=== PATIENT | female | born 1990 | race Caucasian/White ===

== ENCOUNTER 2016-10-04 20:25 | Emergency (ER) | payer BC ==
--- NOTE | 2016-10-04 21:23 | EDM.PDOC ---
ED HPI GENERAL MEDICAL PROBLEM - General Chief Complaint: General Stated Complaint: CHEST PAIN Time Seen by Provider: 10/04/16 20:50 Source of Information: Reports: Patient History Limitations: Reports: No Limitations - History of Present Illness INITIAL COMMENTS - FREE TEXT/NARRATIVE: Patient seen today with chief complaint of not feeling her usual self tire achiness had her DTaP yesterday at OBs office today she has noticed low-grade fever and muscle aches and fatigue also complained of chest pain retrocardiac radiating to the back Onset: Today, Gradual Onset Date: 10/04/16 Onset Time: 17:00 Duration: Hour(s):, Waxing/Waning Location: Reports: Chest, Radiates to (Chest pain radiating to back) Quality: Reports: Ache, Pressure Severity: Moderate Improves with: Reports: None Associated Symptoms: Reports: Other (Hot flashes chills) Treatments PRODUCTION SUPPORT DEVELOPER: Reports: Acetaminophen Middle Chest Pain Score (Numeric/FACES): 6 - Related Data Allergies Allergy/AdvReac Type Severity Reaction Status Date / Time No Known Allergies Allergy Verified 10/04/16 20:25 Home Meds: Home Meds PNV95/Ferrous Fumarate/FA [ Tablet] 1 each PO DAILY 10/04/16 [History] ED ROS GENERAL - Review of Systems Review Of Systems: See Below Constitutional: Reports: No Symptoms HEENT: Reports: No Symptoms Respiratory: Reports: No Symptoms Cardiovascular: Reports: No Symptoms Endocrine: Reports: No Symptoms GI/Abdominal: Reports: Other (Patient is 29 weeks active child with heart rate of 155) : Reports: Frequency Musculoskeletal: Reports: Other (Generalized aches) Skin: Reports: No Symptoms Neurological: Reports: No Symptoms Psychiatric: Reports: No Symptoms Hematologic/Lymphatic: Reports: No Symptoms Immunologic: Reports: No Symptoms Free Text/Narrative/Comment: No lower extremity edema negative Christine good pedal pulses ED EXAM, GENERAL - Physical Exam Exam: See Below Exam Limited By: No Limitations General Appearance: Alert, WD/WN Ears: Normal External Exam, Normal Canal, Hearing Grossly Normal, Normal TMs Nose: Normal Inspection, Normal Mucosa, No Blood Throat/Mouth: Normal Inspection, Normal Lips, Normal Teeth, Normal Gums, Normal Oropharynx, Normal Voice, No Airway Compromise Head: Atraumatic, Normocephalic Neck: Normal Inspection, Supple, Non-Tender, Full Range of Motion Respiratory/Chest: No Respiratory Distress, Lungs Clear, Normal Breath Sounds, No Accessory Muscle Use, Chest Non-Tender Cardiovascular: Normal Peripheral Pulses, Regular Rate, Rhythm, No Edema, No Gallop, No JVD, No Murmur, No Rub GI/Abdominal: Normal Bowel Sounds, Soft, Non-Tender, No Organomegaly, No Distention, No Abnormal Bruit, No Mass (Female) Exam: Deferred Rectal (Female) Exam: Deferred Back Exam: Normal Inspection, Full Range of Motion, NT Extremities: Normal Inspection, Normal Range of Motion, Non-Tender, Normal Capillary Refill, No Pedal Edema Neurological: Alert, Oriented, CN II-XII Intact, Normal Cognition, Normal Gait, Normal Reflexes, No Motor/Sensory Deficits Psychiatric: Normal Affect, Normal Mood Skin Exam: Warm, Dry, Intact, Normal Color, No Rash Course - Vital Signs Last Recorded V/S: Last Vital Signs Temp 98.0 F 10/04/16 20:26 Pulse 116 H 10/04/16 20:26 Resp 20 10/04/16 20:26 BP 128/78 10/04/16 20:26 Pulse Ox 100 10/04/16 20:26 Departure - Departure Time of Disposition: 23:03 Disposition: DC/Tfer to Acute Hospital 02 Condition: Fair Clinical Impression: PE, Pulmonary embolism - Discharge Information Forms: ED Department Discharge Care Plan Goals: Patient is hemodynamically stable we'll transfer to [facility]. - Problem List & Annotations (1) PE, Pulmonary embolism SNOMED Code(s): 20581457 Code(s): I26.99 - OTHER PULMONARY EMBOLISM WITHOUT ACUTE COR PULMONALE Status: Acute Current Visit: Yes - Problem List Review Problem List Initiated/Reviewed/Updated: Yes - Assessment/Plan Assessment:: Patient seen chest pain generalized muscle aches patient is 29 weeks gestation at this time we decided to rule out PE secondary to elevated d-dimer we will transfer her to a center ER for workup including deep vein ultrasound of the legs and possible VQ scan at this time patient is going by private car or by basic ambulance depending on availability of ambulance Troponin NER was negative EKG initially revealed elevated heart rate no acute changes. 1 call called discussed with OB will have all ER evaluate at essentially
[2016-10-04 22:09] LABS: CHLORIDE,CL 104 mmol/L (98-107); SODIUM,NA 138 mmol/L (136-145)
[2016-10-04] MEDS ORDERED: Aspirin 81 MG Tab.Chew PO SCH (22:22)
[2016-10-04] MEDS ORDERED: Aspirin 81 MG Tab.Chew PO STA (22:27)
[2016-10-04 23:35] VITALS: BP 127/63
[2016-10-05] MEDS ORDERED: Aspirin 81 MG Tab.Chew PO SCH (08:00)
== END 2016-10-04 23:25 ==
LOC: LL.ED 20:25
DX: O88.213 Thromboembolism in pregnancy, third trimester (principal); Z3A.29 29 weeks gestation of pregnancy
CPT/HCPCS: 36415; 80048; 81001; 84484; 85025; 85379; 87086; 93005; 99285; A9270

== ENCOUNTER 2019-09-28 13:28 | Emergency (ER) | payer BC ==
--- NOTE | 2019-09-28 13:31 | EDM.PDOC ---
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 No paper hospital chart available.), Other ([facility] EMR) History Limitations: Reports: No Limitations - History of Present Illness INITIAL COMMENTS - FREE TEXT/NARRATIVE: The patient walked into our emergency room from her duties here in the hospital secondary to progressive pelvic cramping with symptoms starting at about 19:00 hours yesterday evening. Her EDC is 01/11/20 by ultrasound with patient having previous irregular menses secondary to her endometriosis and previous Lupron therapy. She denies any vaginal discharge, spotting, or UTI symptoms with her fetus still very active. Her has been without problems to this point. No recent history of abdominal pain, heartburn, nausea, diarrhea, melena, gross hematochezia, or any food intolerance, including fatty foods, etc.. The patient also denies any recent fever, cough, wheezing, dyspnea, etc.. The patient denies any chest pain/pressure, heart flutter, dizziness, orthostasis, orthopnea, diaphoresis, paresthesias, recent decreased exercise tolerance, or any other anginal-type symptoms. Contractions are now fairly irregular, however occasionally on an every 5 minute basis. The patient also denies any recent fever, cough, wheezing, dyspnea, etc.. Onset: Gradual Onset Date: 09/27/19 Onset Time: 19:00 Duration: Getting Worse, Intermittent Location: Reports: Pelvis. Denies: Head, Face, Neck, Chest, Abdomen, Upper Extremity, Left, Upper Extremity, Right, Lower Extremity, Left, Lower Extremity, Right, Radiates to Quality: Reports: Pressure Severity: Moderate Improves with: Reports: None Worsens with: Reports: None Context: Reports: Other (As above). Denies: Sick Contact, Trauma Associated Symptoms: Denies: Confusion, Chest Pain, Cough, Diaphoresis, Fever/Chills, Headaches, Loss of Appetite, Malaise, Nausea/Vomiting, Rash, Seizure, Shortness of Breath, Syncope, Weakness Treatments PER DIEM RN: Reports: Other (see below) (None) Pelvic Pain Score (Numeric/FACES): 8 - Related Data Allergies Allergy/AdvReac Type Severity Reaction Status Date / Time No Known Allergies Allergy Verified 09/28/19 13:30 Home Meds: Home Meds Pnv No.95/Ferrous Fum/Folic AC [ Tablet] 1 each PO DAILY 10/04/16 [History] Past Medical History HEENT History: Reports: Impaired Vision, Otitis Media, Other (See Below) Other HEENT History: Patient wears glasses. Cardiovascular History: Reports: Other (See Below) Other Cardiovascular History: D-dimer elevation on 10/04/16 with negative workup as below. Genitourinary History: Reports: UTI, Recurrent, Other (See Below). Denies: Acute Renal Failure, Chronic Renal Insuffiency Other Genitourinary History: Interstitial cystitis. APPRENTICE PAINTER BRUSH History: Reports: Endometriosis, : 2 Para: 1 LMP (Approximate): Other (See Below) Other APPRENTICE PAINTER BRUSH History: Current 25 weeks gestation. Endometriosis with previous Lupron therapy, surgeries as below, and secondary irregular menses. First full term by without complications. Dysmenorrhea secondary to endometriosis with oligomenorrhea after Lupron therapy, endometrial surgery, etc. as below. Neurological History: Reports: Other (See Below) Other Neuro History: Speech impediment. - Past Surgical History HEENT Surgical History: Reports: Adenoidectomy, Myringotomy w Tube(s), Oral Surgery, Tonsillectomy, Other (See Below) Other HEENT Surgeries/Procedures: Tonsillectomy and adenoidectomy at age 12. [place] teeth extraction Female Surgical History: Reports: Other (See Below) Other Female Surgeries/Procedures: Laparoscopic diagnostic pelvic evaluation with tubal study and resection of endometriosis and pre-sacral neurectomy on 03/11/19. Laparoscopic diagnostic tubal study on 09/10/18 with cystoscopy and hysteroscopy. Bilateral ovarian cysts lysis with endometrial laser fulguration on 04/04/16 with additional cystoscopy and hysteroscopy. Cystoscopy and hysteroscopy on 03/11/19. D&C on 09/10/18. - Past Imaging History Past Imaging History: Reports: CAT Scan (CT of the chest on 10/05/16.), Ultrasound (Last OB ultrasound on 08/18/19.) Social & Family History - Tobacco Use Smoking Status *Q: Never Smoker Tobacco Use Within Last Twelve Months: No Used Tobacco, but Quit: No Smoking Cessation Information Provided To Patient: No Second Hand Smoke Exposure: Yes Source of Second Hand Smoke Exposure: smokes Second Hand Smoke Education Provided: Yes - Caffeine Use Caffeine Use: Reports: Coffee ED ROS GENERAL - Review of Systems Review Of Systems: Comprehensive ROS is negative, except as noted in HPI. ED EXAM - Physical Exam Exam: See Below Exam Limited By: No Limitations General Appearance: Alert, WD/WN, No Apparent Distress Head: Atraumatic, Normocephalic. No: Facial Swelling, Facial Tenderness, Sinus Tenderness Neck: Normal Inspection, Supple, Non-Tender, Full Range of Motion. No: Lymphadenopathy (L), Lymphadenopathy (R), Thyromegaly Respiratory/Chest: No Respiratory Distress, Lungs Clear, Normal Breath Sounds, No Accessory Muscle Use, Chest Non-Tender. No: Pleural Rub, Retractions Cardiovascular: Normal Peripheral Pulses, No Gallop, No JVD, No Murmur, No Rub, Tachycardia (Borderline with regular rhythm). No: No Edema (Dependent edema as below), Gallop/S3, Gallop/S4, Friction Rub GI/Abdominal Exam: Normal Bowel Sounds, Soft, Non-Tender, No Organomegaly, No Distention, No Abnormal Bruit, No Mass, Pelvis Stable, Other (Obese). No: Guarding Fundal Height In cm: 25 Rectal Exam: Deferred (Female) Exam: Normal External Exam, Normal Speculum Exam, Cervical Discharge (Normal discharge of ), Enlarged Uterus (Appropriate for gestation). No: Adnexal Mass (L), Adnexal Mass (R), Adnexal Tenderness, Cervical Dilatation, Cervical Fluid, Cervical Lesions, Cervix Motion Tenderness, Uterine Tenderness, Vaginal Bleeding, Vaginal Lesions, Vaginal Tears Heart Tones: Present Heart Tones per Min: 130 Back Exam: Normal Inspection, Full Range of Motion. No: CVA Tenderness (L), CVA Tenderness (R), Muscle Spasm Extremities: Normal Inspection, Normal Range of Motion, Non-Tender, Normal Capillary Refill, No Pedal Edema Neurological: Alert, Oriented, CN II-XII Intact, Normal Cognition, Normal Gait, Normal Reflexes, No Motor/Sensory Deficits Psychiatric: Normal Affect, Normal Mood Skin Exam: Warm, Dry, Intact, Normal Color, No Rash. No: Diaphoretic, Ecchymosis, Jaundice, Pallor, Petechiae, Wound/Incision Lymphatic: No Adenopathy Course - Vital Signs Last Recorded V/S: Last Vital Signs Temp 37.2 C 09/28/19 14:18 Pulse 100 09/28/19 15:00 Resp 18 09/28/19 15:00 BP 114/77 09/28/19 15:00 Pulse Ox 100 09/28/19 15:00 Vital Signs - 24 hr 09/28/19 09/28/19 14:18 15:00 Temperature [ 37.2 C Temporal] Pulse, 110 H 100 Peripheral [ Pulse Oximetry] Respiratory 24 H 18 Rate Blood Pressure 114/77 [Left Upper Arm ] Blood Pressure 134/83 [Right Upper Arm] O2 Sat by Pulse 99 100 Oximetry - Orders/Labs/Meds Orders: Active Orders 24 hr Category Date Time Status Cardiac Monitoring [RC] . DIRECTED Care 09/28/19 13:36 Active Peripheral IV Care [RC] . DIRECTED Care 09/28/19 13:32 Active CHLAMYDIA AND GONORRHEA BY TMA Routine Lab 09/28/19 13:33 Received CULTURE URINE [RM] Routine Lab 09/28/19 13:33 Received GENITAL CULTURE [MREF] Stat Lab 09/28/19 13:33 Received Sodium Chloride 0.9% [Saline Flush] Med 09/28/19 13:32 Active 10 ml FLUSH ASDIRECTED PRN Heart Monitor External [WOMSER] Stat Oth 09/28/19 13:31 Ordered Obtain Past Medical Record [OM.PC] Routine Oth 09/28/19 13:35 Active Peripheral IV Insertion Adult [OM.PC] Stat Oth 09/28/19 13:32 Ordered Medication Orders Sodium Chloride (Saline Flush) 10 ml FLUSH ASDIRECTED PRN PRN Reason: Keep Vein Open Last Admin: 09/28/19 15:08 Dose: 10 ml Documented by: Admin: 09/28/19 14:16 Dose: 10 ml Documented by: GINI Labs: Laboratory Tests 09/28/19 09/28/19 09/28/19 Range/Units 13:33 13:35 13:35 WBC 10.2 (4.0-10.2) K/uL RBC 4.07 (3.77-5.09) M/uL Hgb 12.6 (11.7-15.5) g/dL Hct 37.4 (34.0-46.0) % MCV 91.9 D (84.0-98.0) fL MCH 31.0 (28.2-33.3) pg MCHC 33.7 (31.7-36.0) g/dL RDW 12.8 (11.2-14.1) % Plt Count 211 D (150-350) K/uL Neut % (Auto) 78.1 (45.0-80.0) % Lymph % (Auto) 16.4 (10.0-50.0) % [place] % (Auto) 4.9 (2.0-14.0) % Eos % (Auto) 0.4 (0.0-5.0) % Baso % (Auto) 0.2 (0.0-2.0) % Neut # (Auto) 7.99 H (1.40-7.00) K/uL Lymph # (Auto) 1.68 (0.50-3.50) K/uL [place] # (Auto) 0.50 (0.00-1.00) K/uL Eos # (Auto) 0.04 (0.00-0.50) K/uL Baso # (Auto) 0.02 (0.00-0.20) K/uL Sodium 137 (136-145) mmol/L Potassium 3.6 (3.5-5.1) mmol/L Chloride 101 (98-107) mmol/L Carbon Dioxide 25.6 (21.0-32.0) mmol/L BUN 12 (7-18) mg/dL Creatinine 0.65 (0.51-1.17) mg/dL Est Cr Clr Drug Dosing TNP Estimated GFR (MDRD) > 60 mL/min Glucose 118 H (74-106) mg/dL Calcium 9.0 (8.5-10.1) mg/dL Magnesium (1.8-2.4) mg/dL Total Bilirubin 0.2 (0.2-1.0) mg/dL AST 20 (15-37) U/L ALT 36 (12-78) U/L Alkaline Phosphatase 92 (46-116) IU/L Total Protein 7.3 (6.4-8.2) g/dL Albumin 2.6 L (3.4-5.0) g/dL TSH, Ultra Sensitive (0.358-3.740) mIU/mL HCG, Quant mIU/mL Specimen Type Urincc Urine Color Yellow Urine Appearance Clear Urine pH 7.0 (5.0-9.0) Ur Specific [place] 1.025 (1.005-1.030) Urine Protein Negative (NEGATIVE) mg/dL Urine Glucose (UA) Negative (NEGATIVE) mg/dL Urine Ketones Negative (NEGATIVE) mg/dL Urine Occult Blood Negative (NEGATIVE) Urine Nitrite Negative (NEGATIVE) Urine Bilirubin Negative (NEGATIVE) Urine Urobilinogen 0.2 (0.2-1.0) E.U./dL Ur Leukocyte Esterase Negative (NEGATIVE) Urine RBC Not seen /HPF Urine WBC Not seen /HPF Ur Epithelial Cells Few /LPF Urine Bacteria Few (NONE TO FEW) /HPF 09/28/19 Range/Units 13:35 WBC (4.0-10.2) K/uL RBC (3.77-5.09) M/uL Hgb (11.7-15.5) g/dL Hct (34.0-46.0) % MCV (84.0-98.0) fL MCH (28.2-33.3) pg MCHC (31.7-36.0) g/dL RDW (11.2-14.1) % Plt Count (150-350) K/uL Neut % (Auto) (45.0-80.0) % Lymph % (Auto) (10.0-50.0) % [place] % (Auto) (2.0-14.0) % Eos % (Auto) (0.0-5.0) % Baso % (Auto) (0.0-2.0) % Neut # (Auto) (1.40-7.00) K/uL Lymph # (Auto) (0.50-3.50) K/uL [place] # (Auto) (0.00-1.00) K/uL Eos # (Auto) (0.00-0.50) K/uL Baso # (Auto) (0.00-0.20) K/uL Sodium (136-145) mmol/L Potassium (3.5-5.1) mmol/L Chloride (98-107) mmol/L Carbon Dioxide (21.0-32.0) mmol/L BUN (7-18) mg/dL Creatinine (0.51-1.17) mg/dL Est Cr Clr Drug Dosing Estimated GFR (MDRD) mL/min Glucose (74-106) mg/dL Calcium (8.5-10.1) mg/dL Magnesium 1.7 L (1.8-2.4) mg/dL Total Bilirubin (0.2-1.0) mg/dL AST (15-37) U/L ALT (12-78) U/L Alkaline Phosphatase (46-116) IU/L Total Protein (6.4-8.2) g/dL Albumin (3.4-5.0) g/dL TSH, Ultra Sensitive 1.252 (0.358-3.740) mIU/mL HCG, Quant 6946 mIU/mL Specimen Type Urine Color Urine Appearance Urine pH (5.0-9.0) Ur Specific [place] (1.005-1.030) Urine Protein (NEGATIVE) mg/dL Urine Glucose (UA) (NEGATIVE) mg/dL Urine Ketones (NEGATIVE) mg/dL Urine Occult Blood (NEGATIVE) Urine Nitrite (NEGATIVE) Urine Bilirubin (NEGATIVE) Urine Urobilinogen (0.2-1.0) E.U./dL Ur Leukocyte Esterase (NEGATIVE) Urine RBC /HPF Urine WBC /HPF Ur Epithelial Cells /LPF Urine Bacteria (NONE TO FEW) /HPF Meds: Medications Generic Name Dose Route Start Last Admin Trade Name Nilton PRN Reason Stop Dose Admin Sodium Chloride 10 ml 09/28/19 13:32 09/28/19 15:08 Saline Flush FLUSH 10 ml ASDIRECTED PRN Administration Keep Vein Open Discontinued Medications Generic Name Dose Route Start Last Admin Trade Name N[place] PRN Reason Stop Dose Admin Lactated Ringer's 1,000 mls @ 999 mls/hr 09/28/19 13:32 09/28/19 14:15 Ringers, Lactated IV 09/28/19 14:32 999 mls/hr .BOLUS ONE Administration Lactated Ringer's 1,000 mls @ 999 mls/hr 09/28/19 14:46 09/28/19 15:07 Ringers, Lactated IV 09/28/19 15:46 999 mls/hr .BOLUS ONE Administration - Radiology Interpretation Free Text/Narrative:: heart tones and uterine contractions difficult to term and by monitor with uterine contractions improved initially from an every five-minute basis to every 15 minutes by patient history. Spot heart tone evaluations by Doppler showed heart tones in the [id number]. phototypesetting equipment monitor shows normal sinus rhythm with heart rate in the 90s with no ectopy or arrhythmia. Departure - Departure Time of Disposition: 16:14 Disposition: DC/Tfer to Acute Hospital 02 Condition: Fair Clinical Impression: Endometriosis, Tobacco abuse counseling, Hypomagnesemia, Hypoalbuminemia labor in second trimester Qualifiers: labor delivery status: without delivery Qualified Code(s): O60.02 - labor without delivery, second trimester - Discharge Information *PRESCRIPTION DRUG MONITORING PROGRAM REVIEWED*: Not Applicable *COPY OF PRESCRIPTION DRUG MONITORING REPORT IN PATIENT MEENA: Not Applicable Instructions: Labor and Information, [id number], Health Risks of Smoking, Steps to Quit Smoking Referrals: PCP,None [Primary Care Provider] - Forms: ED Department Discharge, Interfacility Transfer JORJE Sepsis Event Note (ED) - Focused Exam Vital Signs: Vital Signs Temp Pulse Resp BP BP Pulse Ox 09/28/19 15:00 100 18 114/77 100 09/28/19 14:18 37.2 C 110 H 24 H 134/83 99 - Problem List & Annotations (1) labor in second trimester SNOMED Code(s): 9316719 Code(s): O60.02 - LABOR WITHOUT DELIVERY, SECOND TRIMESTER Status: Acute Priority: High Current Visit: Yes Onset Date: 09/27/19 Annotation/Comment:: Uterine contractions significantly improved as above with initial liter of lactated Ringer's by IV bolus. Note no vaginal bleeding, spotting, etc.. The patient is A+ by their history. Telephone consultation at 14:[address] Valdez, APPRENTICE PAINTER BRUSH from [facility], who does agree to accept the patient for further evaluation, with no further treatment recommendations given. Initial assessment apparently in their OB triage unit. Ambulance transfer with bridge toll collector accompaniment with continuation of IV hydration with another liter of lactated Ringer's by IV bolus. Vital signs, clinical exam, etc. are stable at time of transfer. Patient has been drinking adequate fluids today by her history despite current high humidity and temperatures during the last couple of days. EDC of 01/11/20 by ultrasound as a rhea. Qualifiers: labor delivery status: without delivery Qualified Code(s): O60.02 - labor without delivery, second trimester (2) Endometriosis SNOMED Code(s): 857211718 Code(s): N80.9 - ENDOMETRIOSIS, UNSPECIFIED Status: Chronic Priority: Medium Current Visit: Yes Annotation/Comment:: Stable by patient history (3) Hypomagnesemia SNOMED Code(s): 433728283 Code(s): E83.42 - HYPOMAGNESEMIA Status: Acute Priority: Medium Current Visit: Yes Onset Date: 09/28/19 Annotation/Comment:: Consider supplementation by accepting providers. (4) Tobacco abuse counseling SNOMED Code(s): 270822593, 250865171, 695952097 Code(s): Z71.6 - TOBACCO ABUSE COUNSELING Status: Chronic Priority: Medium Current Visit: Yes Annotation/Comment:: Tobacco cessation information provided to her . (5) Hypoalbuminemia SNOMED Code(s): 002124850 Code(s): E88.09 - OTH DISORDERS OF PLASMA-PROTEIN METABOLISM, NEC Status: Acute Priority: Medium Current Visit: Yes Onset Date: 09/28/19 Annotati on/Comment:: Observe for now. Likely normal secondary to current . - Problem List Review Problem List Initiated/Reviewed/Updated: Yes - My Orders Last 24 Hours: My Active Orders 09/28/19 13:31 Heart Monitor External [WOMSER] Stat 09/28/19 13:32 Peripheral IV Care [RC] . DIRECTED Sodium Chloride 0.9% [Saline Flush] 10 ml FLUSH ASDIRECTED PRN Peripheral IV Insertion Adult [OM.PC] Stat 09/28/19 13:33 CHLAMYDIA AND GONORRHEA BY TMA Routine CULTURE URINE [RM] Routine GENITAL CULTURE [MREF] Stat 09/28/19 13:35 Obtain Past Medical Record [OM.PC] Routine 09/28/19 13:36 Cardiac Monitoring [RC] . DIRECTED - Assessment/Plan Last 24 Hours: My Active Orders 09/28/19 13:31 Heart Monitor External [WOMSER] Stat 09/28/19 13:32 Peripheral IV Care [RC] . DIRECTED Sodium Chloride 0.9% [Saline Flush] 10 ml FLUSH ASDIRECTED PRN Peripheral IV Insertion Adult [OM.PC] Stat 09/28/19 13:33 CHLAMYDIA AND GONORRHEA BY TMA Routine CULTURE URINE [RM] Routine GENITAL CULTURE [MREF] Stat 09/28/19 13:35 Obtain Past Medical Record [OM.PC] Routine 09/28/19 13:36 Cardiac Monitoring [RC] . DIRECTED Assessment:: As above Plan: As above. Extensive precautions were given to the patient and her , who are in agreement with the treatment plan. Ambulance transfer to [place] with bridge toll collector accompaniment as above.
[2019-09-28] MEDS ORDERED: Lactated Ringers 1,000 ML IV ONE ×2 (13:32→14:46)
[2019-09-28 14:15] LABS: CHLORIDE,CL 101 mmol/L (98-107); SODIUM,NA 137 mmol/L (136-145)
[2019-09-28] MEDS: Sodium Chloride 0.9% 10 ML Syringe FLUSH PRN ×2 (14:16→15:08)
[2019-09-28 15:01] VITALS: BP 114/77; PULSE 100
== END 2019-09-28 16:17 ==
LOC: LL.ED 13:28
DX: O60.02 Preterm labor without delivery, second trimester (principal); O99.89 Other specified diseases and conditions complicating pregnancy, childbirth and the puerperium; N80.9 Endometriosis, unspecified; O99.282 Endocrine, nutritional and metabolic diseases complicating pregnancy, second trimester; E83.42 Hypomagnesemia; E88.09 Other disorders of plasma-protein metabolism, not elsewhere classified; Z3A.25 25 weeks gestation of pregnancy; Z71.6 Tobacco abuse counseling; Z77.22 Contact with and (suspected) exposure to environmental tobacco smoke (acute) (chronic)
CPT/HCPCS: 36415; 80053; 81001; 83735; 84443; 84702; 85025; 87070; 87086; 87205; 87210; 87491; 87591; 99285; J7120

== ENCOUNTER 2021-05-02 08:23 | Emergency (ER) | payer BC ==
[2021-05-02] MEDS ORDERED: Sodium Chloride 0.9% 10 ML Syringe FLUSH PRN (09:16)
[2021-05-02] MEDS ORDERED: diphenhydrAMINE 50 MG/ML SDV IVPUSH ONE (09:17)
[2021-05-02] MEDS ORDERED: Lactated Ringers 1,000 ML IV ONE (09:18)
[2021-05-02] MEDS ORDERED: Morphine 2 MG/ML SYRINGE IVPUSH ONE ×2 (09:18→13:26)
[2021-05-02 10:01] LABS: ANION GAP 8.9 meq/L (7-15); CHLORIDE,CL 104 mmol/L (98-107); SODIUM,NA 137 mmol/L (136-145)
[2021-05-02] MEDS ORDERED: Ketorolac 30 MG/ML SDV IVPUSH ONE (11:29)
[2021-05-02 18:45] VITALS: BP 114/67; PULSE 97
== END 2021-05-02 13:40 | disposition home or self-care (01) ==
LOC: LL.ED 08:23
DX: N83.201 Unspecified ovarian cyst, right side (principal); N80.9 Endometriosis, unspecified
CPT/HCPCS: 36415; 76830; 76856; 80053; 81003; 81025; 83605; 85025; 86140; 93975; 96374; 96375; 99284; J1200; J1885; J2270; J7120